=== PATIENT | female | born 1975 | race African-American/Black ===

== ENCOUNTER 2019-08-08 13:10 | Outpatient (CLI) | payer OTHER | END 2019-08-08 21:05 | disposition home or self-care (01) | LOC: SMA 13:10 | DX: Z12.31 Encounter for screening mammogram for malignant neoplasm of breast (principal) | CPT/HCPCS: 77067 ==

== ENCOUNTER 2019-12-19 12:39 | Outpatient (CLI) | payer OTHER | END 2019-12-19 21:20 | disposition home or self-care (01) | LOC: SRD 12:39 | PROVIDERS: ATTEND Specialist | DX: Z30.431 Encounter for routine checking of intrauterine contraceptive device (principal) | CPT/HCPCS: 74018 ==

== ENCOUNTER 2020-01-20 06:10 | Day surgery (SDC) | payer OTHER ==
[2020-01-17 10:09] LABS: BILIRUBIN,URINE NEGATIVE (NEGATIVE); CLARITY/URINE CLEAR (CLEAR); COLOR,URINE YELLOW (YELLOW); GLUCOSE,URINE NEGATIVE (NEGATIVE); KETONES,URINE NEGATIVE (NEGATIVE); LEUKOCYTE ESTERASE ,URINE NEGATIVE (NEGATIVE); NITRITE, URINE NEGATIVE (NEGATIVE); PH,URINE 7.5 (5.0-8.0); PROTEIN URINE NEGATIVE (NEGATIVE); UROBILINOGEN,URINE 0.2 (0.2-1.0)
[2020-01-17 10:10] LABS: BLOOD, URINE TRACE (NEGATIVE)
[2020-01-17 10:14] LABS: BACTERIA,URINE RARE /HPF (None Seen); BASOPHILS % (AUTO) 0.7 % (0.0-2.0); EOSINOPHILS # (AUTO) 0.3 K/uL (0.0-0.4); EOSINOPHILS % (AUTO) 5.5 % (0.0-4.0); HEMATOCRIT 39.8 % (36-48); HEMOGLOBIN 12.9 g/dL (12.0-16.0); LYMPHOCYTES # (AUTO) 1.8 K/uL (1.0-5.5); MEAN CORPUSCULAR HEMOGLOBIN 24 pg (27-31); MEAN CORPUSCULAR HGB CONC 32 % (32-36); MEAN CORPUSCULAR VOLUME 74 fL (79.0-98.0); MONOCYTES # (AUTO) 0.8 K/uL (0.0-1.0); MONOCYTES % (AUTO) 13.3 % (1.7-9.3); NEUTROPHILS # (AUTO) 2.8 K/uL (1.8-7.7); NEUTROPHILS % (AUTO) 49.5 % (40.0-70.0); PLATELET COUNT (AUTO) 349 K/uL (130-430); RBC,URINE 0-3 /HPF (0-3); RED BLOOD CELL COUNT(AUTO) 5.39 MIL/uL (4.2-6.2); RED CELL DISTRIBUTION WIDTH 22.1 % (9.0-15.0); WBC,URINE 0-3 /HPF (0-3); WHITE BLOOD COUNT (AUTO) 5.7 K/uL (4.8-10.8)
[~2020-01-20] VITALS: Ht 165.1 cm; Wt 100.2 kg
[2020-01-20] MEDS ORDERED: CEFAZOLIN SOD 2 GM in D5W 50 ML IV ONE (07:15)
[2020-01-20] MEDS ORDERED: LR 1,000 ML IV ONE (09:25)
[2020-01-20] MEDS ORDERED: MIDAZOLAM HCL 5 MG/ML VIAL (VERSED) IV ONE (09:26)
[2020-01-20] MEDS ORDERED: SEVOFLURANE 15 MIN GAS INH ONE (09:26)
[2020-01-20] MEDS ORDERED: METOCLOPRAMIDE HCL 10 MG/2 ML VIAL ONE (09:26)
[2020-01-20] MEDS ORDERED: PROPOFOL 200MG/ 20ML VIAL (DIPRIVAN) IV ONE (09:26)
[2020-01-20] MEDS ORDERED: NS IRRIG SOLN 1000 ML IR ONE (09:26)
[2020-01-20] MEDS ORDERED: LR 1,000 ML IV.SOLN IV ONE (09:26)
[2020-01-20] MEDS ORDERED: ONDANSETRON HCL 4 MG/2 ML VIAL IVP PRN ×2 (09:30→09:45)
[2020-01-20] MEDS ORDERED: HYDROmorphone 1 MG INJ. 1 MG/ML AMPUL IVP PRN ×2 (09:30)
[2020-01-20] MEDS ORDERED: OXYCODONE/ACETAMINOPHEN 5-325 TABLET PO PRN (09:30)
[2020-01-20] MEDS ORDERED: KETOROLAC TROMETHAMINE 30 MG VIAL IVP PRN (09:30)
[2020-01-20] MEDS ORDERED: HYDROcodone/ACETAMIN 5-325 MG TAB (NORCO/ VICODIN) PO PRN (09:30)
[2020-01-20 10:14] VITALS: BP_SYST 112
== END 2020-01-20 11:30 | disposition home or self-care (01) ==
LOC: SDS 06:10
PROVIDERS: ATTEND Specialist
DX: N93.8 Other specified abnormal uterine and vaginal bleeding (principal); N94.6 Dysmenorrhea, unspecified; N84.0 Polyp of corpus uteri; I10 Essential (primary) hypertension; E66.9 Obesity, unspecified; Z79.899 Other long term (current) drug therapy; N92.0 Excessive and frequent menstruation with regular cycle; Z68.38 Body mass index [BMI] 38.0-38.9, adult
CPT/HCPCS: 36415; 58563; 71046; 81000; 84703; 85025; 88305; 93005; J0690; J2250; J2704; J2765; J7060; J7120

== ENCOUNTER 2021-09-24 09:23 | Outpatient (CLI) | payer OTHER ==
[2021-09-24 10:39] LABS: ALBUMIN 3.7 g/dL (3.4-4.8); CALCIUM 8.3 mg/dL (8.4-11.0); CREATININE 0.98 mg/dL (0.55-1.30); POTASSIUM 3.6 mmol/L (3.5-5.1); TOTAL BILIRUBIN 0.4 mg/dL (0.0-1.0)
[2021-09-24 10:41] LABS: BASOPHILS % (AUTO) 0.5 % (0.0-2.0); EOSINOPHILS # (AUTO) 0.2 K/uL (0.0-0.4); EOSINOPHILS % (AUTO) 2.1 % (0.0-4.0); HEMATOCRIT 40.3 % (36-48); HEMOGLOBIN 13.2 g/dL (12.0-16.0); LYMPHOCYTES # (AUTO) 2.1 K/uL (1.0-5.5); MEAN CORPUSCULAR HEMOGLOBIN 25 pg (27-31); MEAN CORPUSCULAR HGB CONC 33 % (32-36); MEAN CORPUSCULAR VOLUME 77 fL (79.0-98.0); MONOCYTES # (AUTO) 0.8 K/uL (0.0-1.0); MONOCYTES % (AUTO) 10.6 % (1.7-9.3); NEUTROPHILS # (AUTO) 4.7 K/uL (1.8-7.7); NEUTROPHILS % (AUTO) 59.8 % (40.0-70.0); PLATELET COUNT (AUTO) 396 K/uL (130-430); RED BLOOD CELL COUNT(AUTO) 5.25 MIL/uL (4.2-6.2); RED CELL DISTRIBUTION WIDTH 16.6 % (9.0-15.0); WHITE BLOOD COUNT (AUTO) 7.9 K/uL (4.8-10.8)
[2021-09-24 11:26] LABS: THYROID STIMULATING HORMONE 1.62 uIu/mL (0.36-3.74)
[2021-09-25 20:09] LABS: ESTRADIOL 44.2 pg/mL (.); FOLLICLE STIMULATION HORMONE 6.2 mIU/mL (.)
[2021-09-26 15:05] LABS: HEMOGLOBIN A1C 6.8 % (4.8-5.6)
== END 2021-09-24 19:53 | disposition home or self-care (01) ==
LOC: SMA 09:23
PROVIDERS: ATTEND Preventive Medicine Preventive Medicine/Occupational Environmental Medicine
DX: Z12.31 Encounter for screening mammogram for malignant neoplasm of breast (principal); Z01.411 Encounter for gynecological examination (general) (routine) with abnormal findings; N92.0 Excessive and frequent menstruation with regular cycle
CPT/HCPCS: 36415; 77067; 80053; 80061; 82306; 82670; 83001; 83036; 84443; 85025

== ENCOUNTER 2022-07-03 09:56 | Outpatient (CLI) | payer OTHER ==
[2022-07-03 10:35] LABS: BASOPHILS # (AUTO) 0.1 K/uL (0.0-0.2); BASOPHILS % (AUTO) 0.7 % (0.0-2.0); EOSINOPHILS # (AUTO) 0.2 K/uL (0.0-0.4); EOSINOPHILS % (AUTO) 3.3 % (0.0-4.0); HEMATOCRIT 39.6 % (36-48); HEMOGLOBIN 13.2 g/dL (12.0-16.0); LYMPHOCYTES # (AUTO) 2.1 K/uL (1.0-5.5); LYMPHOCYTES % (AUTO) 31.1 % (20.5-51.5); MEAN CORPUSCULAR HEMOGLOBIN 26 pg (27-31); MEAN CORPUSCULAR HGB CONC 33 % (32-36); MEAN CORPUSCULAR VOLUME 77 fL (79.0-98.0); MONOCYTES # (AUTO) 0.7 K/uL (0.0-1.0); MONOCYTES % (AUTO) 9.8 % (1.7-9.3); NEUTROPHILS # (AUTO) 3.8 K/uL (1.8-7.7); NEUTROPHILS % (AUTO) 55.1 % (40.0-70.0); PLATELET COUNT (AUTO) 288 K/uL (130-430); RED BLOOD CELL COUNT(AUTO) 5.16 MIL/uL (4.2-6.2); RED CELL DISTRIBUTION WIDTH 16.6 % (9.0-15.0); WHITE BLOOD COUNT (AUTO) 6.9 K/uL (4.8-10.8)
[2022-07-03 11:06] LABS: THYROID STIMULATING HORMONE 1.72 uIu/mL (0.36-3.74)
[2022-07-04 09:07] LABS: ESTRADIOL 63.6 pg/mL (.); FOLLICLE STIMULATION HORMONE 5.3 mIU/mL (.); LUETENIZING HORMONE 3.2 mIU/mL (.)
== END 2022-07-03 20:12 | disposition home or self-care (01) ==
LOC: SUS 09:56
PROVIDERS: ATTEND Specialist
DX: N85.2 Hypertrophy of uterus (principal); R93.89 Abnormal findings on diagnostic imaging of other specified body structures; N92.1 Excessive and frequent menstruation with irregular cycle
CPT/HCPCS: 36415; 76856-TC; 82670; 83001; 83002; 83540; 84443; 85025